=== PATIENT | male | born 1990 | race African-American/Black ===

== ENCOUNTER 2017-07-02 08:12 | Emergency (ER) | payer SELFPAY ==
[2017-07-02] MEDS ORDERED: IPRATROPIUM/ALBUTEROL 0.5-2.5 MG/3 ML AMPUL NEB ONE (08:37)
[2017-07-02] MEDS ORDERED: PREDNISONE 20 MG TABLET PO ONE (08:37)
--- NOTE | 2017-07-02 08:40 | ER Document Report ---
ED Respiratory Problem - General Chief Complaint: Shortness Of Breath Stated Complaint: DIFFICULTY BREATHING Time Seen by Provider: 07/02/17 08:32 Notes: 26-year-old male with history of asthma presents with approximately 3 days of shortness of breath. This morning his nebulizer did not seem to improve his symptoms very much so he presents to the emergency department. He has a cough but is unclear what color the sputum is but he denies hemoptysis. No specific pain. Mild sore throat. He is out of his albuterol inhaler but has been using his nebulizer. No fever. No new chest pain. No recent steroid or antibiotic use. TRAVEL OUTSIDE OF THE [place] IN LAST 30 DAYS: No - Related Data Allergies/Adverse Reactions: No Known Allergies Allergy (Verified 02/21/16 17:12) Past Medical History - Social History Smoking Status: Never Smoker Family History: Reviewed & Not Pertinent Patient has suicidal ideation: No Pulmonary Medical History: Reports: Hx Asthma Neurological Medical History: Reports: Hx Migraine Renal/ Medical History: Denies: Hx Peritoneal Dialysis - Immunizations Hx Diphtheria, Pertussis, Tetanus Vaccination: Yes Review of Systems - Review of Systems -: Yes All other systems reviewed and negative Physical Exam - Vital signs Vitals: Temp Pulse Resp BP Pulse Ox 98.4 F 94 18 112/77 96 07/02/17 08:18 07/02/17 08:18 07/02/17 08:18 07/02/17 08:18 07/02/17 08:18 - Notes Notes: Physical Exam: GENERAL: VS as per nursing doc. Well-appearing, well-nourished and in no acute distress. HEAD: Atraumatic, normocephalic. EYES: Pupils equal round and reactive to light, extraocular movements intact, sclera anicteric, no conjunctival injection or discharge. ENT: Nares patent, oropharynx clear without exudates though there is mild erythema of the pharyngeal arches. Moist mucous membranes. NECK: Normal range of motion, supple without lymphadenopathy. LUNGS: Breath sounds decreased bilaterally with mild wheezing HEART: Normal S1S2. Regular rate and rhythm without murmurs. Equal peripheral pulses. ABDOMEN: Soft, non-tender EXTREMITIES: Normal range of motion. No calf tenderness. Negative Homans. No edema. NEUROLOGICAL: Cranial nerves grossly intact. Normal speech. Normal sensory and motor exams. No gross cerebellar abnormalities. PSYCH: Normal mood, normal affect. SKIN: Warm, dry, no cyanosis, no splinter hemorrhages. Cap refill < 2 sec. Course - Re-evaluation Re-evalutation: 07/02/17 10:26 Patient still has wheezing on reexam but is improved symptomatically overall. Oxygen saturation 97%. He is comfortable with discharge and understands warning signs to watch for. - Vital Signs Vital signs: Temp Pulse Resp BP Pulse Ox 98.4 F 94 18 112/77 96 07/02/17 08:18 07/02/17 08:18 07/02/17 08:18 07/02/17 08:18 07/02/17 08:18 - Diagnostic Test Radiology reviewed: Image reviewed - No acute process Discharge - Discharge Clinical Impression: Asthma exacerbation, Acute bronchitis Condition: Good Instructions: Asthma ([facility]) Additional Instructions: Return for worsening or concern. Finish all of the antibiotic as directed. Prescriptions: Albuterol Sulfate [Proair HFA Inhalation Aerosol 8.5 gm MDI] 2 puff IH Q4H PRN # 1 mdi PRN Reason: Amoxicillin 1 tab PO TID #30 tab Prednisone [Deltasone 10 mg Tablet] 10 mg PO ASDIR PRN #21 tablet PRN Reason:
[2017-07-02 10:46] VITALS: BP 126/71
--- NOTE | 2017-07-02 10:52 | RADIOLOGY REPORT (SQ) ---
EXAM DESCRIPTION: CHEST PA/LAT COMPLETED DATE/TIME: 07/02/2017 10:26 am REASON FOR STUDY: Cough COMPARISON: 07/07/2008. EXAM PARAMETERS: NUMBER OF VIEWS: two views TECHNIQUE: Digital Frontal and Lateral radiographic views of the chest acquired. RADIATION DOSE: NA LIMITATIONS: none FINDINGS: LUNGS AND PLEURA: No opacities, masses or pneumothorax. No pleural effusion. MEDIASTINUM AND HILAR STRUCTURES: No masses or contour abnormalities. HEART AND VASCULAR STRUCTURES: Heart normal size. No evidence for failure. BONES: No acute findings. HARDWARE: None in the chest. OTHER: No other significant finding. IMPRESSION: NO SIGNIFICANT RADIOGRAPHIC FINDING IN THE CHEST. TECHNICAL DOCUMENTATION: JOB ID: [id number] [employer]- All Rights Reserved
== END 2017-07-02 10:44 | disposition home or self-care (01) ==
LOC: ER 08:12
DX: J45.901 Unspecified asthma with (acute) exacerbation (principal); J20.9 Acute bronchitis, unspecified; R06.02 Shortness of breath; J02.9 Acute pharyngitis, unspecified; R05 Cough
CPT/HCPCS: 94640; 99284; 71020; J7512; J7620

== ENCOUNTER 2019-07-22 11:14 | Emergency (ER) | payer BC ==
[2019-07-22 11:20] VITALS: BP 121/67
[2019-07-22] MEDS ORDERED: DIPH/PERTUSS(ACELL)/TETANUS VAC/PF 0.5 ML SYR (>=10YO) IM ONE (11:35)
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
== END 2019-07-22 11:59 | disposition home or self-care (01) ==
LOC: ER 11:14
DX: S71.132A Puncture wound without foreign body, left thigh, initial encounter (principal); W32.0XXA Accidental handgun discharge, initial encounter; Z23 Encounter for immunization; R50.9 Fever, unspecified; M79.652 Pain in left thigh; J45.909 Unspecified asthma, uncomplicated
CPT/HCPCS: 90471; 90715; 99282